=== PATIENT | female | born 1940 | race Caucasian/White ===

== ENCOUNTER → 2016-06-23 | Outpatient (CLI) | payer MEDICARE, OTHER ==
[~2016-06-23] VITALS: Ht 152.4 cm; Wt 59.4 kg
[~2016-06-23] MED LIST: B-121000 MCG PO; CEFUROXIME500 MG PO; COZAAR 50MG TAB50 MG PO; CRESTOR10 MG PO; DEXILANT60 MG PO; ECOTRIN81 MG PO; FERROUS SULFAT325 M2 PO; FLONASE 0.05% N16 GM; FLOVENT DISKUS50 MCG INH; FUROSEMIDE40 MG PO; GLIMEPIRIDE1 MG PO; HYDRALAZINE HCL25 MG PO; IMDUR ER TAB 6060 MG PO; ISORDIL TAB 3030 MG PO; LIDODERM PATCH 51 EA TOP; LOPRESSOR50 MG PO; NORCO 7.5-3251 EACH PO; NORVASC 5 MG TAB5 MG PO; ONGLYZA2.5 MG PO; OSCAL 500 + D TA1 EA PO; PLAVIX 75 MG TA75 MG PO; PREDNISONE 10 M10 MG PO; RANEXA500 MG PO; SYNTHROID25 MCG PO; TYLENOL 325MG325 MG PO; TYLENOL W/CODEIN1 E1 PO; VITAMIN B-1000 MCG/M IM; ZOFRAN4 MG PO
== END ==
LOC: OPSV 06-20 09:00
DX: M06.9 Rheumatoid arthritis, unspecified (principal)
CPT/HCPCS: 96413; 96415; J1745

== ENCOUNTER → 2016-07-18 | Outpatient (CLI) | payer MEDICARE, OTHER | LOC: RAD 11:59 | DX: M54.89 Other dorsalgia (principal); M51.36 Other intervertebral disc degeneration, lumbar region | CPT/HCPCS: 72072; 72110 ==

== ENCOUNTER → 2016-08-01 | Outpatient (CLI) | payer MEDICARE, OTHER | LOC: LAB 14:24 | PROVIDERS: Internal Medicine Nephrology | DX: R76.8 Other specified abnormal immunological findings in serum (principal); E87.1 Hypo-osmolality and hyponatremia; N18.3 Chronic kidney disease, stage 3 (moderate) | CPT/HCPCS: 36415; 80053; 82043; 82436; 82570; 83516; 83930; 83935; 84133; 84156; 84300 ==

== ENCOUNTER 2016-08-06 00:49 | Emergency (ER) | payer MEDICARE, OTHER ==
[~2016-08-06 00:49] MED LIST changes: -B-121000 MCG PO; -CEFUROXIME500 MG PO; -FLONASE 0.05% N16 GM; -FLOVENT DISKUS50 MCG INH; -FUROSEMIDE40 MG PO; -GLIMEPIRIDE1 MG PO; -ISORDIL TAB 3030 MG PO; -TYLENOL 325MG325 MG PO
[2016-08-06 01:47] LABS: HEMOGLOBIN 13.7 gm/dl (12.3-15.3); RED BLOOD COUNT 4.61 M/UL (4.00-5.10); WHITE BLOOD COUNT 17.8 K/UL (4.5-11.0)
[2016-12-24] MEDS ORDERED: ISORDIL TAB 3030 MG PO (23:06)
[2016-12-24] MEDS ORDERED: PREDNISONE 10 M10 MG PO (23:08)
[2016-12-24] MEDS ORDERED: FUROSEMIDE40 MG PO (23:11)
[2016-12-24] MEDS ORDERED: DEXILANT60 MG PO (23:12)
[2016-12-24] MEDS ORDERED: GLIMEPIRIDE1 MG PO (23:12)
[2016-12-24] MEDS ORDERED: FLOVENT DISKUS50 MCG INH (23:13)
[2016-12-24] MEDS ORDERED: FLONASE 0.05% N16 GM (23:16)
[2016-12-25] MEDS ORDERED: B-121000 MCG PO (23:05)
[2016-12-27] MEDS ORDERED: NORVASC 5 MG TAB5 MG PO (10:47)
[2016-12-27] MEDS ORDERED: CEFUROXIME500 MG PO (10:48)
[2016-12-27] MEDS ORDERED: TYLENOL 325MG325 MG PO (11:24)
== END 2016-08-06 06:43 | disposition home or self-care (01) ==
LOC: ER1 00:49
PROVIDERS: Family Medicine
DX: R11.0 Nausea (principal); D72.829 Elevated white blood cell count, unspecified; F19.90 Other psychoactive substance use, unspecified, uncomplicated; R53.1 Weakness; E11.9 Type 2 diabetes mellitus without complications; M81.0 Age-related osteoporosis without current pathological fracture; Z95.1 Presence of aortocoronary bypass graft; Z90.49 Acquired absence of other specified parts of digestive tract; Z91.041 Radiographic dye allergy status; Z79.82 Long term (current) use of aspirin; Z79.891 Long term (current) use of opiate analgesic; Z79.899 Other long term (current) drug therapy
CPT/HCPCS: 36415; 36600; 71010; 80053; 81001; 82550; 82553; 82803; 83605; 83874; 84484; 85025; 87040; 87086; 96361; 96374; 96375; 99284; J0696; J2405; J7030; J7050

== ENCOUNTER → 2016-08-18 | Outpatient (CLI) | payer MEDICARE, OTHER ==
[~2016-08-18] VITALS: Ht 152.4 cm; Wt 59.4 kg
[~2016-08-18] MED LIST changes: +B-121000 MCG PO; +CEFUROXIME500 MG PO; +FLONASE 0.05% N16 GM; +FLOVENT DISKUS50 MCG INH; +FUROSEMIDE40 MG PO; +GLIMEPIRIDE1 MG PO; +ISORDIL TAB 3030 MG PO; +TYLENOL 325MG325 MG PO
== END ==
LOC: OPSV 08:00
DX: M06.9 Rheumatoid arthritis, unspecified (principal)
CPT/HCPCS: 96413; 96415; J1745

== ENCOUNTER 2016-09-25 11:07 | Emergency (ER) | payer MEDICARE, OTHER ==
[~2016-09-25 11:07] MED LIST changes: -B-121000 MCG PO; -CEFUROXIME500 MG PO; -FLONASE 0.05% N16 GM; -FLOVENT DISKUS50 MCG INH; -FUROSEMIDE40 MG PO; -GLIMEPIRIDE1 MG PO; -ISORDIL TAB 3030 MG PO; -TYLENOL 325MG325 MG PO
[2016-12-24] MEDS ORDERED: ISORDIL TAB 3030 MG PO (23:06)
[2016-12-24] MEDS ORDERED: PREDNISONE 10 M10 MG PO (23:08)
[2016-12-24] MEDS ORDERED: FUROSEMIDE40 MG PO (23:11)
[2016-12-24] MEDS ORDERED: DEXILANT60 MG PO (23:12)
[2016-12-24] MEDS ORDERED: GLIMEPIRIDE1 MG PO (23:12)
[2016-12-24] MEDS ORDERED: FLOVENT DISKUS50 MCG INH (23:13)
[2016-12-24] MEDS ORDERED: FLONASE 0.05% N16 GM (23:16)
[2016-12-25] MEDS ORDERED: B-121000 MCG PO (23:05)
[2016-12-27] MEDS ORDERED: NORVASC 5 MG TAB5 MG PO (10:47)
[2016-12-27] MEDS ORDERED: CEFUROXIME500 MG PO (10:48)
[2016-12-27] MEDS ORDERED: TYLENOL 325MG325 MG PO (11:24)
== END 2016-09-25 13:00 | disposition home or self-care (01) ==
LOC: ER1 11:07
DX: S80.12XA Contusion of left lower leg, initial encounter (principal); I11.9 Hypertensive heart disease without heart failure; E11.9 Type 2 diabetes mellitus without complications; W23.0XXA Caught, crushed, jammed, or pinched between moving objects, initial encounter; Y92.009 Unspecified place in unspecified non-institutional (private) residence as the place of occurrence of the external cause; Z95.1 Presence of aortocoronary bypass graft; Z79.82 Long term (current) use of aspirin
CPT/HCPCS: 73590; 99283

== ENCOUNTER → 2016-09-27 | Outpatient (CLI) | payer MEDICARE, OTHER ==
[~2016-09-27] MED LIST changes: +B-121000 MCG PO; +CEFUROXIME500 MG PO; +FLONASE 0.05% N16 GM; +FLOVENT DISKUS50 MCG INH; +FUROSEMIDE40 MG PO; +GLIMEPIRIDE1 MG PO; +ISORDIL TAB 3030 MG PO; +TYLENOL 325MG325 MG PO
== END ==
LOC: LAB 12:26
PROVIDERS: Internal Medicine Nephrology
DX: E78.5 Hyperlipidemia, unspecified (principal)
CPT/HCPCS: 36415; 80048